=== PATIENT | male | born 1990 | race Two or more races ===

== ENCOUNTER → 2020-10-31 15:18 | Outpatient (CLI) | payer OTHER, SELFPAY ==
[2020-10-31 18:12] LABS: Probe Check PASS; Specimen Processing Control PASS
== END ==
PROVIDERS: PCP Family Medicine; Referring Provider Family Medicine; Visit Provider Family Medicine
DX: R05 Cough (principal); R30.0 Dysuria
CPT/HCPCS: 87635; U0002

== ENCOUNTER → 2020-11-01 18:31 | Outpatient (CLI) | payer OTHER, SELFPAY ==
[2020-11-01 21:27] LABS: Chlamydia Trachomatis by PCR Negative (Negative); Neisserai gonorrhoeae by PCR Negative (Negative); Probe Check PASS; Sample Adequacy Control PASS; Specimen Processing Control PASS
== END ==
PROVIDERS: PCP Family Medicine; Visit Provider Family Medicine
DX: R30.0 Dysuria (principal)
CPT/HCPCS: 87491; 87591